=== PATIENT | male | born 1975 | race Caucasian/White ===

== ENCOUNTER 2020-08-22 08:04 | Inpatient (IN) | payer BC ==
[2020-08-22] MEDS ORDERED: Acetaminophen 325 MG TAB PO PRN (10:25)
[2020-08-22] MEDS ORDERED: Guaifenesin DM 100-10/5 ML UDCUP PO PRN (10:27)
[2020-08-22] MEDS: Vancomycin 1 GM in Premix Bag 1 BAG IVPB SCH ×2 (14:11→22:05)
[2020-08-22] MEDS ORDERED: Albuterol Sulfate 2.5 mg/3 ml Neb NEB PRN (18:41)
[2020-08-22] MEDS: guaiFENesin ER 600 MG TAB PO SCH (20:03)
[2020-08-22] MEDS ORDERED: Vancomycin HCl 1.5 GM in Sodium Chloride 0.9% 250 ML 300 ML IVPB SCH (21:00)
[2020-08-22 21:49] LABS: SARS-CoV-2 PCR by NAA Not Detected (NotDetected)
[2020-08-23 02:31] VITALS: BMI 21.8
[2020-08-23 06:17] LABS: #Eosinphils 1.1 thou/uL (0.0-0.7); #Lymphocytes 2.1 thou/uL (1.20-3.40); #Monocytes 0.9 thou/uL (0.11-0.59); #Neutrophils 4.3 thou/uL (1.40-6.50); %Basophils 0.5 % (0.0-1.0); %Eosinophils 12.8 % (0.0-10.0); %Lymphocytes 25.1 % (21.0-51.0); %Neutrophils 50.5 % (42.0-75.0); Hemoglobin 13.5 g/dL (14.0-18.0); Mean Corpuscular HGB CONC 34.4 g/dL (32.0-36.0); Mean Corpuscular Hemoglobin 32.3 pg (27.0-31.0); Mean Corpuscular Volume 93.9 fL (78.0-98.0); Mean Platelet Volume 6.5 fL (7.4-10.4); Platelet Count 309 thou/uL (130-400); RBC Distribution Width 11.1 % (11.5-14.5); Red Blood Cell (RBC) Count 4.19 mill/uL (4.70-6.10); White Blood Cell (WBC) Count 8.5 thou/uL (4.8-10.8)
[2020-08-23 06:33] LABS: Anion Gap 10 mmol/L (10-20); BUN (Urea Nitrogen) 6 mg/dL (8.9-20.6); Calc. Creatinine Clearance 114 mL/min (70-130); Calcium 8.5 mg/dL (7.8-10.44); Carbon Dioxide 30 mmol/L (22-29); Chloride 104 mmol/L (98-107); Glucose 104 mg/dL (70-105); Sodium 140 mmol/L (136-145)
[2020-08-23] MEDS ORDERED: cefTRIAXone\\ROCEPHIN 1 GM in Sodium Chloride 0.9% 100 ML IVPB SCH (07:00)
[2020-08-23] MEDS: guaiFENesin ER 600 MG TAB PO SCH (10:13)
[2020-08-23] MEDS ORDERED: Ipratropium Bromide 0.06% Nasal Inhaler 15ml EA NARE SCH ×2 (11:15→21:00)
[2020-08-23] MEDS ORDERED: predniSONE 20 MG TAB PO SCH (11:15)
[2020-08-23] MEDS ORDERED: FLU VACC QS2020-21(6MOS UP)/PF 60 MCG/0.5 ML SYRINGE IM ONE (14:30)
[2020-08-23 15:49] VITALS: BP 125/80; TEMP 97.9
[2020-08-24] MEDS ORDERED: predniSONE 20 MG TAB PO SCH (08:00)
== END 2020-08-23 15:40 | disposition home or self-care (01) | DRG 188 ==
LOC: ERS 08:04 → T4-B 08:44
PROVIDERS: ADMIT Internal Medicine; ATTEND Internal Medicine
DX: J90 Pleural effusion, not elsewhere classified (principal); Z20.822 Contact with and (suspected) exposure to COVID-19; I48.91 Unspecified atrial fibrillation; I10 Essential (primary) hypertension; F17.210 Nicotine dependence, cigarettes, uncomplicated; Z88.1 Allergy status to other antibiotic agents; Z79.51 Long term (current) use of inhaled steroids; Z79.899 Other long term (current) drug therapy
CPT/HCPCS: 36415; 80048; 83880; 84484; 85025; 87635; 93005; 94640; J0696; J3370; J3490; J7512; J7611; U0003; U0005

== ENCOUNTER 2020-09-15 10:11 | Outpatient (CLI) | payer BC | END 2020-09-15 10:12 | disposition home or self-care (01) | LOC: BICRAD 10:11 | PROVIDERS: ATTEND Internal Medicine Critical Care Medicine | DX: R06.00 Dyspnea, unspecified (principal) | CPT/HCPCS: 71046 ==

== ENCOUNTER 2021-01-31 10:33 | Outpatient (CLI) | payer BC | END 2021-01-31 10:34 | disposition home or self-care (01) | LOC: BICRAD 10:33 | PROVIDERS: ATTEND Internal Medicine Critical Care Medicine | DX: R06.00 Dyspnea, unspecified (principal); J90 Pleural effusion, not elsewhere classified; J98.11 Atelectasis | CPT/HCPCS: 71046 ==